=== PATIENT | female | born 1985 | race Asian ===

== ENCOUNTER → 2016-07-11 | Outpatient (CLI) | payer MEDICARE ==
--- NOTE | 2016-07-12 09:23 | ECHOF ---
Referral Reason: MEASUREMENTS -------- HEIGHT: 162.6 cm WEIGHT: 77.1 kg BP: IVSd: 1.0 cm (0.6 - 1.1) LVIDd: 3.5 cm (3.9 - 5.3) LVPWd: 0.9 cm (0.6 - 1.1) IVSs: 1.5 cm LVIDs: 2.5 cm LVPWs: 1.0 cm Ao Diam: 2.9 cm (2.0 - 3.7) AV Cusp: 1.8 cm (1.5 - 2.6) LA Diam: 2.8 cm (2.7 - 3.8) MV EXCURSION: 16.399 mm (> 18.000) MV EF SLOPE: 96 mm/s (70 - 150) EPSS: 1.6 cm MV E Hitesh: 0.71 m/s MV DecT: 122 ms MV A Hitesh: 0.80 m/s MV E/A Ratio: 0.89 RAP: 5.00 mmHg RVSP: 13.19 mmHg FINDINGS -------- Sinus rhythm. Resting tachycardia (HR>100bpm). This was a technically good study. Left ventricular wall thickness is normal. Overall left ventricular systolic function is normal with, an EF between 55 - 60 %. The right ventricle is normal in size and function. The left atrium is normal in size. The right atrium is normal in size. The aortic valve is trileaflet, and appears structurally normal. No aortic stenosis or regurgitation. The mitral valve leaflets are mildly thickened. There is trace mitral regurgitation. Trace tricuspid regurgitation present. The right ventricular systolic pressure, as measured by Doppler, is 13.19mmHg. Pulmonic valve appears structurally normal. The aortic root size is normal. The pericardium is normal. CONCLUSIONS -------- 1. Sinus rhythm. 2. The mitral valve leaflets are mildly thickened. 3. There is trace mitral regurgitation. 4. Trace tricuspid regurgitation present. 5. The right ventricular systolic pressure, as measured by Doppler, is 13.19mmHg. 6. Pulmonic valve appears structurally normal. 7. The aortic root size is normal. 8. The pericardium is normal. 9. Resting tachycardia (HR>100bpm). 10. This was a technically good study. 11. Left ventricular wall thickness is normal. 12. Overall left ventricular systolic function is normal with, an EF between 55 - 60 %. 13. The right ventricle is normal in size and function. 14. The left atrium is normal in size. 15. The right atrium is normal in size. 16. The aortic valve is trileaflet, and appears structurally normal. No aortic stenosis or regurgitation. TOOL GRINDING TECHNICIAN: Nasreen Matamoros RDCS
== END | disposition home or self-care (01) ==
LOC: RADECHMAIN 13:20
PROVIDERS: ATTEND Family Medicine
DX: I08.1 Rheumatic disorders of both mitral and tricuspid valves (principal)
CPT/HCPCS: 93306

== ENCOUNTER → 2018-10-04 | Outpatient (CLI) | payer MEDICARE ==
--- NOTE | 2018-10-04 12:01 | US ---
EXAMINATION TYPE: US pelvis complete transvag DATE OF EXAM: 10/04/2018 COMPARISON: NONE CLINICAL HISTORY: N94.6 Dysmenorrhea. TECHNIQUE: . Transabdominal sonographic images of the pelvis were acquired. Transvaginal sonographi c images were medically necessary to better assess the following anatomy: endometrium Date of LMP: 09/15/2018 EXAM MEASUREMENTS: Uterus: 7.3 x 2.8 x 4.5 cm Endometrial Stripe: 0.2 cm Right Ovary: 1.8 x 1.1 x 0.9 cm Left Ovary: 1.7 x 1.3 x 1.3 cm 1. Uterus: Anteverted fundal fibroid 1.6 x 0.9 x 1.2 cm 2. Endometrium: wnl 3. Right Ovary: wnl 4. Left Ovary: wnl 5. Bilateral Adnexa: wnl 6. Posterior cul-de-sac: wnl Heterogeneous anteverted uterus is seen. No free fluid in pelvic cul-de-sac. Towards end of study the re is a irregular heterogeneous hypoechoic area could reflect subserosal fibroid measuring 1.6 cm teodoro g axis. Endometrium is somewhat thinned for day 18 of menstrual cycle. Both ovaries are identified. No suspicious adnexal lesions are seen on images saved. IMPRESSION: Endometrial stripe is thinned for patient's last known menstrual period. Possible 1.6 cm fundal subserosal fibroid. This could be better evaluated with pelvic MRI if desired.
== END ==
LOC: RADUSWWP 08:00
PROVIDERS: ATTEND Family Medicine
DX: N94.6 Dysmenorrhea, unspecified (principal)
CPT/HCPCS: 76830; 76856

== ENCOUNTER 2018-11-16 23:11 | Emergency (ER) | payer MEDICARE ==
--- NOTE | 2018-11-17 00:37 | ED ---
SOB HPI - General Chief Complaint: Shortness of Breath Stated Complaint: Poss Overdose Time Seen by Provider: 11/16/18 23:26 Source: patient Mode of arrival: ambulatory Limitations: no limitations - History of Present Illness Initial Comments: This patient is 33-year-old woman who presented to be evaluated for possible respiratory depression. The patient stated that she had accidentally combined taking an Ambien with a Xanax. She took that approximately 10 to 10:30 tonight. The patient states that when she looked up the interactions she noted that respiratory depression was on the list. Patient states that it does feel like she has to take a deep breath periodically. She denies chest pain or yennifer dyspnea. No other symptoms. MD Complaint: shortness of breath -: minutes(s) Improves With: nothing Worsens With: nothing Associated Symptoms: denies other symptoms Treatments Prior to Arrival: none - Related Data Home Oxygen Therapy: No Allergies Allergy/AdvReac Type Severity Reaction Status Date / Time quetiapine [From Seroquel] Allergy Rash/Hives Verified 11/16/18 23:20 Review of Systems ROS Statement: Those systems with pertinent positive or pertinent negative responses have been documented in the HPI. ROS Other: All systems not noted in ROS Statement are negative. Constitutional: Denies: fever, chills Respiratory: Reports: as per HPI. Denies: cough, dyspnea, wheezes, hemoptysis Cardiovascular: Denies: chest pain, palpitations, orthopnea, edema, syncope Gastrointestinal: Denies: abdominal pain, nausea, vomiting Musculoskeletal: Denies: back pain Skin: Denies: rash Psychiatric: Denies: anxiety, depression, suicidal thoughts Past Medical History Past Medical History: Diabetes Mellitus History of Any Multi-Drug Resistant Organisms: None Reported Past Surgical History: No Surgical Hx Reported Past Psychological History: Bipolar Smoking Status: Current every day smoker Past Alcohol Use History: None Reported Past Drug Use History: None Reported General Exam Limitations: no limitations General appearance: alert, in no apparent distress Head exam: Present: atraumatic, normocephalic Eye exam: Present: normal appearance. Absent: scleral icterus, conjunctival injection ENT exam: Present: normal oropharynx Neck exam: Present: normal inspection Respiratory exam: Present: normal lung sounds bilaterally. Absent: respiratory distress, wheezes, rales, rhonchi, stridor Cardiovascular Exam: Present: normal rhythm, tachycardia (Heart rate was 112 my exam), normal heart sounds. Absent: systolic murmur, diastolic murmur, rubs, gallop GI/Abdominal exam: Present: soft. Absent: distended, tenderness, guarding, rebound, rigid, mass Extremities exam: Present: normal inspection, normal capillary refill. Absent: pedal edema, calf tenderness Back exam: Present: normal inspection. Absent: CVA tenderness (R), CVA tenderness (L) Neurological exam: Present: alert Psychiatric exam: Present: normal affect. Absent: depressed, suicidal ideation Skin exam: Present: warm, dry, intact, normal color. Absent: rash Course Vital Signs 11/16/18 11/17/18 23:18 00:55 Temperature 97.9 F 98.7 F Pulse Rate 132 H 117 H Respiratory 16 20 Rate Blood Pressure 124/83 123/84 O2 Sat by Pulse 96 96 Oximetry Medical Decision Making - Medical Decision Making Baljit is observed in the emergency departments to ensure no development of respiratory depression. The patient did state that she felt better at the end of the observation period and requested to go home. Discussed the mild tachycardia and fluid bolus recommended but the patient declines that stating she will just take oral fluids when she gets home. Discussed return parameters. Disposition Clinical Impression: Accidental overdose Disposition: HOME SELF-CARE Condition: Good Instructions (If sedation given, give patient instructions): Benzodiazepine Overdose (ED) Is patient prescribed a controlled substance at d/c from ED?: No Referrals: Mukul Deng III, MD [Primary Care Provider] - 1-2 days
[2018-11-17 01:03] VITALS: BP 123/84; PULSE 117; RESP 20; TEMP 98.7
== END 2018-11-17 01:03 | disposition home or self-care (01) ==
LOC: EC 23:11
DX: T42.6X1A Poisoning by other antiepileptic and sedative-hypnotic drugs, accidental (unintentional), initial encounter (principal); T42.4X1A Poisoning by benzodiazepines, accidental (unintentional), initial encounter; R00.0 Tachycardia, unspecified; F17.200 Nicotine dependence, unspecified, uncomplicated; Z88.8 Allergy status to other drugs, medicaments and biological substances; Z53.20 Procedure and treatment not carried out because of patient's decision for unspecified reasons
CPT/HCPCS: 99284

== ENCOUNTER 2019-07-04 01:30 | Emergency (ER) | payer MEDICARE ==
[2019-07-04 01:40] VITALS: TEMP 99
[2019-07-04 02:05] LABS: Appearance,Urine Turbid (Clear); Bilirubin,Urine Negative (Negative); Blood,Urine Large (Negative); Color,Urine Red; Glucose,Urine (UA) 4+ (Negative); Ketones,Urine Negative (Negative); Leukocyte Esterase,Urine Large (Negative); Nitrite,Urine Negative (Negative); PH, Urine 5.5 (5.0-8.0); Protein,Urine 2+ (Negative); RBC,Urine >182 /hpf (0-5); Specific Gravity,Urine 1.016 (1.001-1.035); Urobilinogen,Urine <2.0 mg/dL (<2.0); WBC,Urine >182 /hpf (0-5)
[2019-07-04] MEDS ORDERED: PHENAZOPYRIDINE 200 MG TAB PO STA (02:35)
[2019-07-04] MEDS ORDERED: SULFAMETHOX-TMP 800-160MG 1 EACH TAB PO STA (02:35)
--- NOTE | 2019-07-04 02:40 | ED ---
Female Urogenital HPI - General Chief complaint: Urogenital Stated complaint: Blood in urine Time Seen by Provider: 07/04/19 01:52 Source: patient, family Mode of arrival: ambulatory Limitations: no limitations - History of Present Illness Initial comments: 's patient is 34-year-old woman who presents to be evaluated for suspected urinary tract infection. She states that she started having symptoms a little after noon. She began feeling frequent urge to urinate. She states that she was only urinating small volumes. She then noticed dysuria. Tonight she noted that there was some hematuria as well. Patient denies systemic symptoms, no fever or chills. No chest pain, palpitations, dyspnea, nausea or vomiting. No change in bowel movements. She had not noted any vaginal discharge or change in periods. MD Complaint: dysuria Onset/Timin -: hour(s) Location: suprapubic Radiation: non-radiating Severity: mild Quality: other (Pressure) Consistency: constant Improves with: urination Worsens with: none Last Menstrual Period: 06/27/19 Patient : No Associated Symptoms: dysuria - Related Data Previous Rx's Medication Instructions Recorded Phenazopyridine [Pyridium] 100 mg PO TID #6 tablet 07/04/19 Sulfamethox-Tmp 800-160Mg [Bactrim 1 each PO Q12HR #14 tab 07/04/19 Ds] Allergies Allergy/AdvReac Type Severity Reaction Status Date / Time quetiapine [From Seroquel] Allergy Rash/Hives Verified 07/04/19 01:33 Review of Systems ROS Statement: Those systems with pertinent positive or pertinent negative responses have been documented in the HPI. ROS Other: All systems not noted in ROS Statement are negative. Constitutional: Denies: fever, chills Respiratory: Denies: dyspnea Cardiovascular: Denies: chest pain, palpitations, edema Gastrointestinal: Reports: as per HPI, abdominal pain (Suprapubic discomfort), diarrhea. Denies: vomiting, constipation Genitourinary: Reports: urgency, dysuria, frequency, hematuria. Denies: discharge, abnormal menses Musculoskeletal: Denies: back pain Skin: Denies: rash Past Medical History Past Medical History: Diabetes Mellitus History of Any Multi-Drug Resistant Organisms: None Reported Past Surgical History: No Surgical Hx Reported Past Psychological History: Bipolar Smoking Status: Former smoker Past Alcohol Use History: None Reported Past Drug Use History: None Reported General Exam Limitations: no limitations General appearance: alert, in no apparent distress Head exam: Present: atraumatic, normocephalic Eye exam: Present: normal appearance. Absent: scleral icterus, conjunctival injection Respiratory exam: Present: normal lung sounds bilaterally. Absent: respiratory distress, wheezes, rales, rhonchi, stridor Cardiovascular Exam: Present: regular rate, normal rhythm, normal heart sounds. Absent: systolic murmur, diastolic murmur, rubs, gallop GI/Abdominal exam: Present: soft. Absent: distended, tenderness, guarding, rebound, rigid, mass Back exam: Absent: CVA tenderness (R), CVA tenderness (L) Neurological exam: Present: alert Skin exam: Present: warm, dry, intact, normal color. Absent: rash Course Vital Signs 07/04/19 01:30 Temperature 99 F Pulse Rate 100 Respiratory 20 Rate Blood Pressure 126/94 O2 Sat by Pulse 97 Oximetry Medical Decision Making - Lab Data Lab Results 07/04/19 07/04/19 Range/Units 01:37 01:37 Urine Color Red Urine Appearance Turbid H (Clear) Urine pH 5.5 (5.0-8.0) Ur Specific [place] 1.016 (1.001-1.035) Urine Protein 2+ H (Negative) Urine Glucose (UA) 4+ H (Negative) Urine Ketones Negative (Negative) Urine Blood Large H (Negative) Urine Nitrite Negative (Negative) Urine Bilirubin Negative (Negative) Urine Urobilinogen <2.0 (<2.0) mg/dL Ur Leukocyte Esterase Large H (Negative) Urine RBC >182 H (0-5) /hpf Urine WBC >182 H (0-5) /hpf Urine HCG, Qual Not Detected (Not Detectd) Disposition Clinical Impression: Urinary tract infection Disposition: HOME SELF-CARE Condition: Good Instructions (If sedation given, give patient instructions): Urinary Tract Infection in Women (ED) Prescriptions: Sulfamethox-Tmp 800-160Mg [Bactrim Ds] 1 each PO Q12HR #14 tab Phenazopyridine [Pyridium] 100 mg PO TID #6 tablet Is patient prescribed a controlled substance at d/c from ED?: No Referrals: Mukul Deng III, MD [Primary Care Provider] - 1-2 days
[2019-07-04 03:19] VITALS: BP 122/83; PULSE 110; RESP 19
== END 2019-07-04 03:01 | disposition home or self-care (01) ==
LOC: EC 01:30
DX: N39.0 Urinary tract infection, site not specified (principal); Z87.891 Personal history of nicotine dependence; Z88.8 Allergy status to other drugs, medicaments and biological substances
CPT/HCPCS: 81001; 81025; 87086; 99283

== ENCOUNTER 2019-07-10 12:20 | Inpatient (IN) | payer MEDICARE ==
[2019-07-10] MEDS ORDERED: SODIUM CHLORIDE 0.9% 1,000 ML IV STA (12:45)
[2019-07-10] MEDS ORDERED: KETOROLAC 30 MG/ML 1 ML VIAL IVP STA (12:45)
--- NOTE | 2019-07-10 12:50 | ED ---
Abdominal Pain HPI - General Chief Complaint: Abdominal Pain Stated Complaint: blood in urine/back pain Time Seen by Provider: 07/10/19 12:28 Source: patient Mode of arrival: ambulatory Limitations: no limitations - History of Present Illness Initial Comments: Patient is a 34-year-old female presenting to emergency Department with complaints of hematuria as well as right lower back pain x2 days. Patient was in the ER last week and was diagnosed with a UTI and started on Bactrim. Patient states she believes her symptoms have been increasing since then. She's been having intermittent nausea, suprapubic pain as well as right-sided low back pain. Patient states she went to her PCP today for a follow-up and states she still having lots of hematuria and with her back pain wanted her to be reevaluated. Patient's urine culture came back normal. Patient is on her last day of Bactrim. Patient denies chest pain, shortness of breath, cough. Patient is a type II diabetic and takes metformin and was recently started on a new insulin. Her PCP states that it might be the new insulin causing her symptoms. She has no other complaints at this time. Upon arrival to the ER, patient was tachycardia at 132, rest of vitals are normal. - Related Data Home Medications Medication Instructions Recorded Confirmed ARIPiprazole [Abilify] 15 mg PO DAILY 07/10/19 07/10/19 Cyanocobalamin (Vitamin B-12) 1,000 mcg PO AC-LUNCH 07/10/19 07/10/19 [Vitamin B-12] DULoxetine HCL [Cymbalta] 120 mg PO DAILY 07/10/19 07/10/19 Dapagliflozin Propanediol [Farxiga] 10 mg PO DAILY 07/10/19 07/10/19 Ergocalciferol [Vitamin D2] 50,000 unit PO TH 07/10/19 07/10/19 Famotidine [Pepcid] 10 mg PO BID 07/10/19 07/10/19 Ferrous Sulfate [Feosol] 325 mg PO DAILY 07/10/19 07/10/19 Hyoscyamine Sulfate [Levbid] 0.375 mg PO BID 07/10/19 07/10/19 Introvale 0.15mg-30 Mg 1 tab PO DAILY 07/10/19 07/10/19 LORazepam [Ativan] 0.5 mg PO DAILY PRN 07/10/19 07/10/19 Lactobacillus Rhamnosus GG 1 cap PO HS 07/10/19 07/10/19 [Culturelle] Lisinopril [Zestril] 2.5 mg PO DAILY 07/10/19 07/10/19 Loratadine [Claritin] 10 mg PO DAILY 07/10/19 07/10/19 Melatonin 20 mg PO HS 07/10/19 07/10/19 Sulfamethox-Tmp 800-160Mg [Bactrim 1 tab PO Q12H 07/10/19 07/10/19 Ds] Zolpidem [Ambien] 10 mg PO HS 07/10/19 07/10/19 metFORMIN HCL ER [Glucophage Xr] 1,000 mg PO BID 07/10/19 07/10/19 valACYclovir [Valtrex] 1,000 mg PO DAILY 07/10/19 07/10/19 Allergies Allergy/AdvReac Type Severity Reaction Status Date / Time quetiapine [From Seroquel] Allergy Rash/Hives Verified 07/10/19 16:05 Review of Systems ROS Statement: Those systems with pertinent positive or pertinent negative responses have been documented in the HPI. ROS Other: All systems not noted in ROS Statement are negative. Past Medical History Past Medical History: Diabetes Mellitus Additional Past Medical History / Comment(s): IBS History of Any Multi-Drug Resistant Organisms: None Reported Past Surgical History: No Surgical Hx Reported Past Psychological History: Anxiety, Bipolar Smoking Status: Former smoker Past Alcohol Use History: None Reported Past Drug Use History: None Reported General Exam - General Exam Comments Initial Comments: GENERAL: Well-appearing, well-nourished and in no acute distress. HEAD: Atraumatic, normocephalic. EYES: Pupils equal round and reactive to light, extraocular movements intact, sclera anicteric, conjunctiva are normal. ENT: TMs normal, nares patent, oropharynx clear without exudates. Moist mucous membranes. NECK: Normal range of motion, supple without lymphadenopathy or JVD. LUNGS: Breath sounds clear to auscultation bilaterally and equal. No wheezes rales or rhonchi. HEART: Tachycardia rate and rhythm without murmurs, rubs or gallops. ABDOMEN: Mild suprapubic tenderness, no other abdominal tenderness. Mild right flank tenderness. Soft, normoactive bowel sounds. No guarding, no rebound. No masses appreciated. : Deferred EXTREMITIES: Normal range of motion, no pitting or edema. No clubbing or cyanosis. NEUROLOGICAL: Normal speech, normal gait. PSYCH: Normal mood, normal affect. SKIN: Warm, Dry, normal turgor, no rashes or lesions noted. Limitations: no limitations Course Vital Signs 07/10/19 07/10/19 07/10/19 12:23 14:20 14:24 Temperature 98.1 F 98.4 F Pulse Rate 132 H 84 124 H Respiratory 20 16 16 Rate Blood Pressure 126/86 114/76 114/76 O2 Sat by Pulse 96 95 97 Oximetry 07/10/19 07/10/19 07/10/19 14:30 15:00 15:30 Temperature Pulse Rate 75 84 79 Respiratory 18 16 20 Rate Blood Pressure 114/76 113/76 106/71 O2 Sat by Pulse 94 L 95 94 L Oximetry Medical Decision Making - Medical Decision Making Patient is 34-year-old female presenting with hematuria and right flank pain 2 days. She was tachycardia on arrival, afebrile. Patient has slight leukocytosis on lab work at 13.5, glucose is 325. Patient continues to have a few WBCs as well as bacteria in her urine. 4+ glucose. Urine culture is pending at this time. Patient was given fluids, Toradol, 1 g Rocephin in the ER. Upon recheck of her vitals, patient still appears to be tachycardia at 124. Given her hypoglycemia, UTI, tachycardia, patient will be admitted to obs ervation for continued IV antibiotics and hydration. She is in agreement with this plan and care. Case discussed with Dr. Hendrix. Dr. Nixon was accepting. - Lab Data Result diagrams: 07/10/19 12:44 07/10/19 12:44 Lab Results 07/10/19 07/10/19 07/10/19 Range/Units 12:44 12:44 12:44 WBC 13.5 H (3.8-10.6) k/uL RBC 4.57 (3.80-5.40) m/uL Hgb 14.8 (11.4-16.0) gm/dL Hct 44.9 (34.0-46.0) % MCV 98.4 (80.0-100.0) fL MCH 32.4 (25.0-35.0) pg MCHC 32.9 (31.0-37.0) g/dL RDW 12.5 (11.5-15.5) % Plt Count 401 (150-450) k/uL Neutrophils % 68 % Lymphocytes % 23 % Monocytes % 4 % Eosinophils % 1 % Basophils % 1 % Neutrophils # 9.2 H (1.3-7.7) k/uL Lymphocytes # 3.2 (1.0-4.8) k/uL Monocytes # 0.6 (0-1.0) k/uL Eosinophils # 0.2 (0-0.7) k/uL Basophils # 0.2 (0-0.2) k/uL Sodium 138 (137-145) mmol/L Potassium 4.5 (3.5-5.1) mmol/L Chloride 104 (98-107) mmol/L Carbon Dioxide 18 L (22-30) mmol/L Anion Gap 16 mmol/L BUN 10 (7-17) mg/dL Creatinine 0.64 (0.52-1.04) mg/dL Est GFR (CKD-EPI)AfAm >90 (>60 ml/min/1.73 sqM) Est GFR (CKD-EPI)NonAf >90 (>60 ml/min/1.73 sqM) Glucose 325 H (74-99) mg/dL POC Glucose (mg/dL) (75-99) mg/dL POC Glu Firmware Test Engineer ID Calcium 9.5 (8.4-10.2) mg/dL Total Bilirubin 0.4 (0.2-1.3) mg/dL AST 29 (14-36) U/L ALT 18 (4-34) U/L Alkaline Phosphatase 75 (38-126) U/L Total Protein 7.3 (6.3-8.2) g/dL Albumin 4.3 (3.5-5.0) g/dL Urine Color Light Yellow Urine Appearance Clear (Clear) Urine pH 5.0 (5.0-8.0) Ur Specific [place] 1.024 (1.001-1.035) Urine Protein Negative (Negative) Urine Glucose (UA) 4+ H (Negative) Urine Ketones Trace H (Negative) Urine Blood Small H (Negative) Urine Nitrite Negative (Negative) Urine Bilirubin Negative (Negative) Urine Urobilinogen <2.0 (<2.0) mg/dL Ur Leukocyte Esterase Small H (Negative) Urine RBC 17 H (0-5) /hpf Urine WBC 15 H (0-5) /hpf Ur Squamous Epith Cells <1 (0-4) /hpf Urine Bacteria Rare H (None) /hpf Urine Mucus Rare H (None) /hpf 07/10/19 Range/Units 14:21 WBC (3.8-10.6) k/uL RBC (3.80-5.40) m/uL Hgb (11.4-16.0) gm/dL Hct (34.0-46.0) % MCV (80.0-100.0) fL MCH (25.0-35.0) pg MCHC (31.0-37.0) g/dL RDW (11.5-15.5) % Plt Count (150-450) k/uL Neutrophils % % Lymphocytes % % Monocytes % % Eosinophils % % Basophils % % Neutrophils # (1.3-7.7) k/uL Lymphocytes # (1.0-4.8) k/uL Monocytes # (0-1.0) k/uL Eosinophils # (0-0.7) k/uL Basophils # (0-0.2) k/uL Sodium (137-145) mmol/L Potassium (3.5-5.1) mmol/L Chloride (98-107) mmol/L Carbon Dioxide (22-30) mmol/L Anion Gap mmol/L BUN (7-17) mg/dL Creatinine (0.52-1.04) mg/dL Est GFR (CKD-EPI)AfAm (>60 ml/min/1.73 sqM) Est GFR (CKD-EPI)NonAf (>60 ml/min/1.73 sqM) Glucose (74-99) mg/dL POC Glucose (mg/dL) 227 H (75-99) mg/dL POC Glu Firmware Test Engineer ID Hira Hardin Calcium (8.4-10.2) mg/dL Total Bilirubin (0.2-1.3) mg/dL AST (14-36) U/L ALT (4-34) U/L Alkaline Phosphatase (38-126) U/L Total Protein (6.3-8.2) g/dL Albumin (3.5-5.0) g/dL Urine Color Urine Appearance (Clear) Urine pH (5.0-8.0) Ur Specific [place] (1.001-1.035) Urine Protein (Negative) Urine Glucose (UA) (Negative) Urine Ketones (Negative) Urine Blood (Negative) Urine Nitrite (Negative) Urine Bilirubin (Negative) Urine Urobilinogen (<2.0) mg/dL Ur Leukocyte Esterase (Negative) Urine RBC (0-5) /hpf Urine WBC (0-5) /hpf Ur Squamous Epith Cells (0-4) /hpf Urine Bacteria (None) /hpf Urine Mucus (None) /hpf Disposition Clinical Impression: UTI (urinary tract infection), Dehydration, Hyperglycemia Disposition: ADMITTED IP TO THIS HOSP Condition: Stable Is patient prescribed a controlled substance at d/c from ED?: No Decision Date: 07/10/19 Decision Time: 15:35
[2019-07-10 13:02] LABS: Basophils # (A) 0.2 k/uL (0-0.2); Basophils % (A) 1 %; Eosinophils # (A) 0.2 k/uL (0-0.7); Eosinophils % (A) 1 %; HCT 44.9 % (34.0-46.0); HGB 14.8 gm/dL (11.4-16.0); Lymphocytes # (A) 3.2 k/uL (1.0-4.8); Lymphocytes % (A) 23 %; MCH 32.4 pg (25.0-35.0); MCHC 32.9 g/dL (31.0-37.0); MCV 98.4 fL (80.0-100.0); Mean Platelet Volume 6.8; Monocytes # (A) 0.6 k/uL (0-1.0); Monocytes % (A) 4 %; Neutrophils # (A) 9.2 k/uL (1.3-7.7); Neutrophils % (A) 68 %; Platelet Count 401 k/uL (150-450); RBC 4.57 m/uL (3.80-5.40); RDW 12.5 % (11.5-15.5); WBC 13.5 k/uL (3.8-10.6)
[2019-07-10 13:13] LABS: ALT 18 U/L (4-34); AST 29 U/L (14-36); African American GFR (CKD) >90 (>60 ml/min/1.73 sqM); Albumin 4.3 g/dL (3.5-5.0); Alkaline Phosphatase 75 U/L (38-126); Anion Gap 16 mmol/L; Appearance,Urine Clear (Clear); Bacteria,Urine Rare /hpf; Bilirubin,Urine Negative (Negative); Blood Urea Nitrogen 10 mg/dL (7-17); Blood,Urine Small (Negative); Calcium 9.5 mg/dL (8.4-10.2); Carbon Dioxide 18 mmol/L (22-30); Chloride 104 mmol/L (98-107); Color,Urine Light Yellow; Glucose 325 mg/dL (74-99); Glucose,Urine (UA) 4+ (Negative); Ketones,Urine Trace (Negative); Leukocyte Esterase,Urine Small (Negative); Mucus,Urine Rare /hpf; Nitrite,Urine Negative (Negative); Non-African American GFR(CKD) >90 (>60 ml/min/1.73 sqM); Potassium 4.5 mmol/L (3.5-5.1); Protein,Urine Negative (Negative); RBC,Urine 17 /hpf (0-5); Sodium 138 mmol/L (137-145); Specific Gravity,Urine 1.024 (1.001-1.035); Squamous Epithelial Cell,Urine <1 /hpf (0-4); Total Bilirubin 0.4 mg/dL (0.2-1.3); Total Protein 7.3 g/dL (6.3-8.2); Urobilinogen,Urine <2.0 mg/dL (<2.0); WBC,Urine 15 /hpf (0-5)
[2019-07-10 14:23] LABS: Glucose,Whole Blood 227 mg/dL (75-99)
[2019-07-10] MEDS ORDERED: NALOXONE 0.4 MG/ML 1 ML VIAL IV PRN (15:32)
[2019-07-10] MEDS ORDERED: IBUPROFEN 400 MG TAB PO PRN (15:32)
[2019-07-10] MEDS: SODIUM CHLORIDE 0.9% 1,000 ML IV SCH (16:56)
[2019-07-10] MEDS ORDERED: KETOROLAC 30 MG/ML 1 ML VIAL IVP PRN (17:13)
[2019-07-10] MEDS: INSULIN ASPART (NovoLOG) 100 UNIT/ML VIAL SQ SCH ×2 (17:35→21:22)
[2019-07-10 17:36] LABS: Glucose,Whole Blood 119 mg/dL (75-99)
[2019-07-10] MEDS: HEPARIN SODIUM,PORCINE 5,000 UNIT/ML 1 ML VIAL SQ SCH (21:04)
[2019-07-10] MEDS: metFORMIN 500 MG TAB PO SCH (21:04)
[2019-07-10] MEDS: MELATONIN 5 MG TABLET PO SCH (21:05)
[2019-07-10] MEDS: HYOSCYAMINE SULFATE 0.375 MG TAB.ER.12H PO SCH (21:05)
[2019-07-10] MEDS: ZOLPIDEM 10 MG TAB PO SCH (21:08)
[2019-07-10 21:18] LABS: Glucose,Whole Blood 137 mg/dL (75-99)
[2019-07-10] MEDS: LACTOBACILLUS ACIDOPH & BULGAR 1 EACH PACKET PO SCH (21:22)
[2019-07-10] MEDS: LORazepam 0.5 MG TAB PO PRN (22:26)
[2019-07-10] MEDS ORDERED: ONDANSETRON 4 MG/2 ML VIAL IVP STA (22:45)
--- NOTE | 2019-07-10 23:22 | XR ---
EXAMINATION TYPE: XR abdomen 2V DATE OF EXAM: 07/10/2019 COMPARISON: NONE HISTORY: Right-sided pain TECHNIQUE: 3 views FINDINGS: There is no sign of intestinal obstruction or pneumoperitoneum. Fecal pattern is normal. Shira ng bases are clear. There are no pathologic calcifications over the kidneys. IMPRESSION: Nonacute abdomen.
[2019-07-11] MEDS: SODIUM CHLORIDE 0.9% 1,000 ML IV SCH ×2 (05:59→19:24)
--- NOTE | 2019-07-11 06:49 | P.HPIM ---
History of Present Illness This is a pleasant 54 years old female with past medical history of diabetes mellitus and irritable bowel syndrome, anxiety/bipolar. Presents because of abdominal pain. Patient states that she was diagnosed with UTI about one week ago when she had also blood in urine, and that She was given Bactrim and sent home however she got worse. Yesterday she went to see her PCP Dr. Deng states she still had blood in urine, she was tachycardic and dehydrated. Patient complaining of from right lower back pain radiating to the right flank since Monday about 4 days ago, at 17/10 in severity coming down to 4-5/10 currently I sharp associated with nausea but no vomiting. Rory ago her PCP added Farxigo to metformin 1000 twice a day because her hemoglobin A1c was 7.9. This medication inhibits glucose reabsorption and increasing urinary glucose excretion. Patient is slightly tachycardic 106-124, his flaps looks stable and patient is afebrile. She has mild leukocytosis with 13.5 K. Risks of labs including CBC, BMP and liver enzymes not elevated. Sugar is 119-227. And urinalysis is suspicious of infection. Abdominal x-ray: No acute process In the emergency room patient was started on Rocephin, she got also Toradol and started on normal saline at 75 mL/h Review of Systems CONSTITUTIONAL: No fever, no malaise, no fatigue. HEENT: No recent visual problems or hearing problems. Denied any sore throat. CARDIOVASCULAR: No orthopnea, PND, no palpitations, no syncope. PULMONARY: No shortness of breath, no cough, no hemoptysis. GASTROINTESTINAL: No diarrhea, no nausea, no vomiting, no abdominal pain. Normoactive bowel sounds. NEUROLOGICAL: No headaches, no weakness, no numbness. HEMATOLOGICAL: Denies any bleeding or petechiae. GENITOURINARY: Denies any burning micturition MUSCULOSKELETAL/RHEUMATOLOGICAL: Denies any joint pain, swelling, or any muscle pain. ENDOCRINE: Denies any polyuria or polydipsia. Past Medical History Past Medical History: Diabetes Mellitus Additional Past Medical History / Comment(s): IBS History of Any Multi-Drug Resistant Organisms: None Reported Past Surgical History: No Surgical Hx Reported Past Psychological History: Anxiety, Bipolar Smoking Status: Former smoker Past Alcohol Use History: None Reported Past Drug Use History: None Reported Medications and Allergies Home Medications Medication Instructions Recorded Confirmed Type ARIPiprazole [Abilify] 15 mg PO DAILY 07/10/19 07/10/19 History Cyanocobalamin (Vitamin B-12) 1,000 mcg PO AC-LUNCH 07/10/19 07/10/19 History [Vitamin B-12] DULoxetine HCL [Cymbalta] 120 mg PO DAILY 07/10/19 07/10/19 History Dapagliflozin Propanediol [Farxiga] 10 mg PO DAILY 07/10/19 07/10/19 History Ergocalciferol [Vitamin D2] 50,000 unit PO TH 07/10/19 07/10/19 History Famotidine [Pepcid] 10 mg PO BID 07/10/19 07/10/19 History Ferrous Sulfate [Feosol] 325 mg PO DAILY 07/10/19 07/10/19 History Hyoscyamine Sulfate [Levbid] 0.375 mg PO BID 07/10/19 07/10/19 History Introvale 0.15mg-30 Mg 1 tab PO DAILY 07/10/19 07/10/19 History LORazepam [Ativan] 0.5 mg PO DAILY PRN 07/10/19 07/10/19 History Lactobacillus Rhamnosus GG 1 cap PO HS 07/10/19 07/10/19 History [Culturelle] Lisinopril [Zestril] 2.5 mg PO DAILY 07/10/19 07/10/19 History Loratadine [Claritin] 10 mg PO DAILY 07/10/19 07/10/19 History Melatonin 20 mg PO HS 07/10/19 07/10/19 History Sulfamethox-Tmp 800-160Mg [Bactrim 1 tab PO Q12H 07/10/19 07/10/19 History Ds] Zolpidem [Ambien] 10 mg PO HS 07/10/19 07/10/19 History metFORMIN HCL ER [Glucophage Xr] 1,000 mg PO BID 07/10/19 07/10/19 History valACYclovir [Valtrex] 1,000 mg PO DAILY 07/10/19 07/10/19 History Allergies Allergy/AdvReac Type Severity Reaction Status Date / Time quetiapine [From Seroquel] Allergy Rash/Hives Verified 07/10/19 16:05 Physical Exam Vitals: Vital Signs Temp Pulse Pulse Pulse Resp BP BP 07/11/19 05:25 98.5 F 91 16 119/80 07/10/19 20:19 98.2 F 106 H 18 122/84 07/10/19 17:06 98.2 F 114 H 16 117/83 07/10/19 16:58 98.2 F 82 20 110/66 07/10/19 15:30 79 20 106/71 07/10/19 15:00 84 16 113/76 07/10/19 14:30 75 18 114/76 07/10/19 14:24 98.4 F 124 H 16 114/76 07/10/19 14:20 84 16 114/76 07/10/19 12:23 98.1 F 132 H 20 126/86 Pulse Ox 07/11/19 05:25 95 07/10/19 20:19 96 07/10/19 17:06 94 L 07/10/19 16:58 95 07/10/19 15:30 94 L 07/10/19 15:00 95 07/10/19 14:30 94 L 07/10/19 14:24 97 07/10/19 14:20 95 07/10/19 12:23 96 Intake and Output 07/10/19 07/10/19 07/11/19 14:59 22:59 06:59 Other: Voiding Method Toilet # Voids 2 2 Weight 86.954 kg GENERAL: The patient is alert and oriented x3, not in any acute distress. Well developed, well nourished. HEENT: Pupils are round and equally reacting to light. EOMI. No scleral icterus. No conjunctival pallor. Normocephalic, atraumatic. No pharyngeal erythema. No thyromegaly. CARDIOVASCULAR: S1 and S2 present. No murmurs, rubs, or gallops. PULMONARY: Chest is clear to auscultation, no wheezing or crackles. -ABDOMEN: Soft, suprapubic tenderness, right flank pain and right costovertebral angle tenderness, no rebound tenderness or guarding, nondistended, normoactive bowel sounds. No palpable organomegaly. MUSCULOSKELETAL: No joint swelling or deformity. EXTREMITIES: No cyanosis, clubbing, or pedal edema. NEUROLOGICAL: Gross neurological examination did not reveal any focal deficits. SKIN: No rashes. No petechiae Results CBC & Chem 7: 07/10/19 12:44 07/10/19 12:44 Labs: Abnormal Lab Results - Last 24 Hours (Table) 07/10/19 07/10/19 07/10/19 Range/Units 12:44 12:44 12:44 WBC 13.5 H (3.8-10.6) k/uL Neutrophils # 9.2 H (1.3-7.7) k/uL Carbon Dioxide 18 L (22-30) mmol/L Glucose 325 H (74-99) mg/dL POC Glucose (mg/dL) (75-99) mg/dL Urine Glucose (UA) 4+ H (Negative) Urine Ketones Trace H (Negative) Urine Blood Small H (Negative) Ur Leukocyte Esterase Small H (Negative) Urine RBC 17 H (0-5) /hpf Urine WBC 15 H (0-5) /hpf Urine Bacteria Rare H (None) /hpf Urine Mucus Rare H (None) /hpf 07/10/19 07/10/19 07/10/19 Range/Units 14:21 17:34 21:16 WBC (3.8-10.6) k/uL Neutrophils # (1.3-7.7) k/uL Carbon Dioxide (22-30) mmol/L Glucose (74-99) mg/dL POC Glucose (mg/dL) 227 H 119 H 137 H (75-99) mg/dL Urine Glucose (UA) (Negative) Urine Ketones (Negative) Urine Blood (Negative) Ur Leukocyte Esterase (Negative) Urine RBC (0-5) /hpf Urine WBC (0-5) /hpf Urine Bacteria (None) /hpf Urine Mucus (None) /hpf Microbiology - Last 24 Hours (Table) 07/10/19 12:44 Urine Culture - Preliminary Urine,Voided Thrombosis Risk Factor Assmnt - Choose All That Apply Any of the Below Risk Factors Present?: No Other Risk Factors: No Other congenital or acquired thrombophilia - If yes, enter type in comment: No Thrombosis Risk Factor Assessment Level: Very Low Risk Assessment and Plan Assessment: acute complicated urinary tract infection with Abdominal pain with hematuria Diabetes mellitus Irritable bowel syndrome Anxiety and depression, not an active issue Plan: this is a pleasant 54 years old female who presents with hematuria and abdominal pain. Continue with antibiotics. Recommend to discontinue Farxigo. Continue with metformin and insulin sliding scale Discontinue NSAIDs and in view of her hematuria . Pain management. Continue with IV fluids. Follow-up urine cultures Continue same treatment. Continue with symptomatic treatment. Resume home medication. Monitor lytes and vitals. DVT and GI prophylaxis. Further recommendations of the clinical course of the patient DVT prophylaxis: Subcutaneous heparin GI Prophylaxis: Pepcid Prognosis is guarded
[2019-07-11 07:18] LABS: Glucose,Whole Blood 131 mg/dL (75-99)
[2019-07-11] MEDS: HEPARIN SODIUM,PORCINE 5,000 UNIT/ML 1 ML VIAL SQ SCH ×2 (08:00→21:44)
[2019-07-11] MEDS: FAMOTIDINE 20 MG TAB PO SCH (08:00)
[2019-07-11] MEDS: metFORMIN 500 MG TAB PO SCH ×2 (08:00→21:41)
[2019-07-11] MEDS: LISINOPRIL 2.5 MG TAB PO SCH (08:00)
[2019-07-11] MEDS: LORATADINE 10 MG TAB PO SCH (08:01)
[2019-07-11] MEDS: INSULIN ASPART (NovoLOG) 100 UNIT/ML VIAL SQ SCH ×4 (08:01→21:43)
[2019-07-11] MEDS: DULoxetine HCL 30 MG CAPSULE.DR PO SCH (08:01)
[2019-07-11] MEDS: HYOSCYAMINE SULFATE 0.375 MG TAB.ER.12H PO SCH ×2 (08:01→21:42)
[2019-07-11] MEDS: ARIPiprazole 15 MG TAB PO SCH (08:02)
[2019-07-11 08:45] LABS: Basophils # (A) 0.2 k/uL (0-0.2); Basophils % (A) 2 %; Eosinophils # (A) 0.1 k/uL (0-0.7); Eosinophils % (A) 1 %; HCT 39.9 % (34.0-46.0); Lymphocytes # (A) 3.8 k/uL (1.0-4.8); Lymphocytes % (A) 41 %; MCH 32.1 pg (25.0-35.0); MCHC 32.5 g/dL (31.0-37.0); MCV 98.6 fL (80.0-100.0); Mean Platelet Volume 7.1; Monocytes # (A) 0.6 k/uL (0-1.0); Monocytes % (A) 6 %; Neutrophils # (A) 4.3 k/uL (1.3-7.7); Neutrophils % (A) 47 %; Platelet Count 364 k/uL (150-450); RBC 4.05 m/uL (3.80-5.40); RDW 12.5 % (11.5-15.5); WBC 9.1 k/uL (3.8-10.6)
[2019-07-11 08:56] LABS: ALT 15 U/L (4-34); AST 26 U/L (14-36); African American GFR (CKD) >90 (>60 ml/min/1.73 sqM); Albumin 3.5 g/dL (3.5-5.0); Alkaline Phosphatase 47 U/L (38-126); Anion Gap 9 mmol/L; Blood Urea Nitrogen 11 mg/dL (7-17); Calcium 8.5 mg/dL (8.4-10.2); Carbon Dioxide 24 mmol/L (22-30); Chloride 103 mmol/L (98-107); Glucose 115 mg/dL (74-99); Non-African American GFR(CKD) >90 (>60 ml/min/1.73 sqM); Potassium 4.4 mmol/L (3.5-5.1); Sodium 136 mmol/L (137-145); Total Bilirubin 0.6 mg/dL (0.2-1.3); Total Protein 6.2 g/dL (6.3-8.2)
[2019-07-11 09:02] LABS: HCG,Qualitative Serum Not Detected
[2019-07-11] MEDS: traMADol 50 MG TAB PO PRN ×3 (09:25→23:27)
[2019-07-11 11:38] VITALS: BMI 32.9
[2019-07-11 12:11] LABS: Glucose,Whole Blood 151 mg/dL (75-99)
[2019-07-11] MEDS: CYANOCOBALAMIN 500 MCG TAB PO SCH (12:32)
[2019-07-11 17:14] LABS: Glucose,Whole Blood 149 mg/dL (75-99)
--- NOTE | 2019-07-11 18:06 | US ---
Right Kidney: EXAMINATION TYPE: US renals and bladder DATE OF EXAM: 07/11/2019 COMPARISON: NONE CLINICAL HISTORY: uti with back pain . UTI and back pain x 5 days. Hematuria. HTN. EXAM MEASUREMENTS: Right Kidney: 12.2 x 6.2 x 5.3 cm Left Kidney: 11.5 x 5.8 x 6.0 cm Right Kidney: Measures slightly enlarged. No hydronephrosis, calcifications or masses seen Left Kidney: No hydronephrosis, calcification or masses seen Bladder: Appears anechoic. Bilateral Jets seen: Yes IMPRESSION: No acute processes.
[2019-07-11 20:02] LABS: Glucose,Whole Blood 162 mg/dL (75-99)
[2019-07-11] MEDS: LORazepam 0.5 MG TAB PO PRN (20:15)
[2019-07-11] MEDS: MELATONIN 5 MG TABLET PO SCH (21:41)
[2019-07-11] MEDS: ZOLPIDEM 10 MG TAB PO SCH (21:42)
[2019-07-11] MEDS: LACTOBACILLUS ACIDOPH & BULGAR 1 EACH PACKET PO SCH (23:20)
--- NOTE | 2019-07-11 23:35 | P.CONS ---
History of Present Illness - Reason for Consult Consult date: 07/11/19 UTI Requesting physician: Lexa E Sheet - Chief Complaint Urinary frequency/hematuria x days - History of Present Illness Patient is a 34-year-old female started getting sick about a week ago patient did have predominantly urinary symptoms with urinary burning and frequency patient was evaluated at [facility] ER on July 04 UA and culture were done patient received a dose of antibiotics IM and was discharged home on Bactrim DS however the patient had did have a rather worsening of her symptoms this patient who did have a suprapubic and right flank discomfort more of a dull aching pain about 3-4 out of 10 and no radiation with intermittent nausea and the patient was having hematuria patient subsequently was sent back to the ER by the PCP patient on arrival to the ER was afebrile however she was tachycardic patient white count was elevated 13.5 UA was positive with small Steri-Strips and 50 WBC patient urine culture not showing gram-negative she was started on Rocephin infectious was consulted for further recommendation about antibiotic therapy. Review of Systems Positive point has been mentioned in HPI rest of the systems are negative Past Medical History Past Medical History: Diabetes Mellitus Additional Past Medical History / Comment(s): IBS History of Any Multi-Drug Resistant Organisms: None Reported Past Surgical History: No Surgical Hx Reported Past Psychological History: Anxiety, Bipolar Smoking Status: Former smoker Past Alcohol Use History: None Reported Past Drug Use History: None Reported Medications and Allergies Home Medications Medication Instructions Recorded Confirmed Type ARIPiprazole [Abilify] 15 mg PO DAILY 07/10/19 07/10/19 History Cyanocobalamin (Vitamin B-12) 1,000 mcg PO AC-LUNCH 07/10/19 07/10/19 History [Vitamin B-12] DULoxetine HCL [Cymbalta] 120 mg PO DAILY 07/10/19 07/10/19 History Dapagliflozin Propanediol [Farxiga] 10 mg PO DAILY 07/10/19 07/10/19 History Ergocalciferol [Vitamin D2] 50,000 unit PO TH 07/10/19 07/10/19 History Famotidine [Pepcid] 10 mg PO BID 07/10/19 07/10/19 History Ferrous Sulfate [Feosol] 325 mg PO DAILY 07/10/19 07/10/19 History Hyoscyamine Sulfate [Levbid] 0.375 mg PO BID 07/10/19 07/10/19 History Introvale 0.15mg-30 Mg 1 tab PO DAILY 07/10/19 07/10/19 History LORazepam [Ativan] 0.5 mg PO DAILY PRN 07/10/19 07/10/19 History Lactobacillus Rhamnosus GG 1 cap PO HS 07/10/19 07/10/19 History [Culturelle] Lisinopril [Zestril] 2.5 mg PO DAILY 07/10/19 07/10/19 History Loratadine [Claritin] 10 mg PO DAILY 07/10/19 07/10/19 History Melatonin 20 mg PO HS 07/10/19 07/10/19 History Sulfamethox-Tmp 800-160Mg [Bactrim 1 tab PO Q12H 07/10/19 07/10/19 History Ds] Zolpidem [Ambien] 10 mg PO HS 07/10/19 07/10/19 History metFORMIN HCL ER [Glucophage Xr] 1,000 mg PO BID 07/10/19 07/10/19 History valACYclovir [Valtrex] 1,000 mg PO DAILY 07/10/19 07/10/19 History Allergies Allergy/AdvReac Type Severity Reaction Status Date / Time quetiapine [From Seroquel] Allergy Rash/Hives Verified 07/10/19 16:05 Physical Exam Vitals: Vital Signs Temp Pulse Resp BP Pulse Ox 07/11/19 15:00 98.6 F 108 H 16 124/73 94 L 07/11/19 05:25 98.5 F 91 16 119/80 95 07/10/19 20:19 98.2 F 106 H 18 122/84 96 Intake and Output 07/11/19 07/11/19 07/11/19 06:59 14:59 22:59 Intake Total 650 Balance 650 Intake: Intake, IV Titration 650 Amount Sodium Chloride 0.9% 1, 600 000 ml @ 75 mls/hr IV . [id number] [facility] Rx#:[id number] cefTRIAXone 1 gm In 50 Sodium Chloride 0.9% 50 ml @ 100 mls/hr IVPB Q24HR [facility] Rx#:[id number] Other: Voiding Method Toilet Toilet # Voids 2 Weight 86.954 kg GENERAL DESCRIPTION: Middle-aged female lying in bed, no distress. No tachypnea or accessory muscle of respiration use. HEENT: Shows Pallor , no scleral icterus. Oral mucous membrane is dry. NECK: Trachea central, no thyromegaly. LUNGS: Unlabored breathing. Clear to auscultation anteriorly. No wheeze or crackle. HEART: S1, S2, regular rate and rhythm. ABDOMEN: Soft, no tenderness , guarding or rigidity EXTREMITIES: No edema of feet. SKIN: No rash, no masses palpable. NEUROLOGICAL: The patient is awake, alert, oriented x3, mood and affect normal. Results CBC & Chem 7: 07/11/19 07:09 07/11/19 07:09 Labs: Abnormal Lab Results - Last 24 Hours (Table) 07/10/19 07/11/19 07/11/19 Range/Units 21:16 07:09 07:16 Sodium 136 L (137-145) mmol/L Creatinine 0.46 L (0.52-1.04) mg/dL Glucose 115 H (74-99) mg/dL POC Glucose (mg/dL) 137 H 131 H (75-99) mg/dL Total Protein 6.2 L (6.3-8.2) g/dL 07/11/19 07/11/19 Range/Units 11:59 17:10 Sodium (137-145) mmol/L Creatinine (0.52-1.04) mg/dL Glucose (74-99) mg/dL POC Glucose (mg/dL) 151 H 149 H (75-99) mg/dL Total Protein (6.3-8.2) g/dL Microbiology - Last 24 Hours (Table) 07/10/19 12:44 Urine Culture - Preliminary Urine,Voided Gram Neg Bacilli Assessment and Plan Assessment: patient being admitted to hospital her with urinary burning frequency hematuria this patient did have suprapubic and flank pain with nausea did have elevated white count likely from enteric gram-negative pathogen failing outpatient oral Bactrim DS therapy patient did have ultrasound of the kidney that was negative for hydronephrosis or renal stone (1) Urinary tract infection Current Visit: Yes Status: Acute Code(s): N39.0 - URINARY TRACT INFECTION, SITE NOT SPECIFIED SNOMED Code(s): 04140503 Plan: 1-Rocephin 1 g IV piggyback daily 2-IV fluid We will follow on clinical condition and cultures to further adjust medication if needed Thank you for this consultation we will follow the patient along with you
[2019-07-12 07:03] LABS: Glucose,Whole Blood 121 mg/dL (75-99)
[2019-07-12] MEDS: FAMOTIDINE 20 MG TAB PO SCH (08:02)
[2019-07-12] MEDS: HYOSCYAMINE SULFATE 0.375 MG TAB.ER.12H PO SCH ×2 (08:02→21:42)
[2019-07-12] MEDS: HEPARIN SODIUM,PORCINE 5,000 UNIT/ML 1 ML VIAL SQ SCH ×2 (08:03→21:39)
[2019-07-12] MEDS: DULoxetine HCL 30 MG CAPSULE.DR PO SCH (08:03)
[2019-07-12] MEDS: LISINOPRIL 2.5 MG TAB PO SCH (08:03)
[2019-07-12] MEDS: ARIPiprazole 15 MG TAB PO SCH (08:03)
[2019-07-12] MEDS: metFORMIN 500 MG TAB PO SCH ×2 (08:04→21:39)
[2019-07-12] MEDS: INSULIN ASPART (NovoLOG) 100 UNIT/ML VIAL SQ SCH ×4 (08:04→21:40)
[2019-07-12] MEDS: LORATADINE 10 MG TAB PO SCH (08:04)
[2019-07-12] MEDS: SODIUM CHLORIDE 0.9% 1,000 ML IV SCH ×2 (08:06→22:20)
[2019-07-12] MEDS: traMADol 50 MG TAB PO PRN ×3 (08:55→23:33)
[2019-07-12 11:43] LABS: Glucose,Whole Blood 130 mg/dL (75-99)
[2019-07-12] MEDS: CYANOCOBALAMIN 500 MCG TAB PO SCH (11:56)
--- NOTE | 2019-07-12 13:56 | PN ---
PROGRESS NOTE DATE OF SERVICE: 07/12/2019 REASON FOR FOLLOWUP: A gram-negative urinary tract infection. INTERVAL HISTORY: The patient is currently afebrile. Patient is breathing comfortably. Denies having chest pain, shortness of breath or cough. No nausea or vomiting. Urinary symptoms have improved and no diarrhea. PHYSICAL EXAMINATION: Blood pressure 107/74 with a pulse of 88, temperature 97.9. She is 95% on room air. General description is a middle-aged female lying in bed in no distress. RESPIRATORY SYSTEM: Unlabored breathing, clear to auscultation anteriorly. HEART: S1, S2. Regular rate and rhythm. ABDOMEN: Soft, no tenderness. LABS: Renal ultrasound did not show any structural abnormality. Urine culture with gram- negative, sensitivities pending. DIAGNOSTIC IMPRESSION AND PLAN: Patient admitted to the hospital with gram-negative urinary tract infection failing outpatient oral Bactrim DS therapy. Patient responded to Rocephin, that will be continued. Discharge antibiotic will depend on the culture report. Continue with supportive care. MMODL / IJN: [id number] /
[2019-07-12 17:33] LABS: Glucose,Whole Blood 189 mg/dL (75-99)
[2019-07-12 20:33] LABS: Glucose,Whole Blood 166 mg/dL (75-99)
[2019-07-12] MEDS: ZOLPIDEM 10 MG TAB PO SCH (21:38)
[2019-07-12] MEDS: MELATONIN 5 MG TABLET PO SCH (21:39)
[2019-07-12] MEDS: LACTOBACILLUS ACIDOPH & BULGAR 1 EACH PACKET PO SCH (21:40)
[2019-07-12] MEDS: LORazepam 0.5 MG TAB PO PRN (22:19)
--- NOTE | 2019-07-12 23:02 | P.PN ---
Subjective This is a pleasant 54 years old female with past medical history of diabetes mellitus and irritable bowel syndrome, anxiety/bipolar. Presents because of abdominal pain. Patient states that she was diagnosed with UTI about one week ago when she had also blood in urine, and that She was given Bactrim and sent home however she got worse. Yesterday she went to see her PCP Dr. Deng states she still had blood in urine, she was tachycardic and dehydrated. Patient complaining of from right lower back pain radiating to the right flank since Monday about 4 days ago, at 17/10 in severity coming down to 4-5/10 currently I sharp associated with nausea but no vomiting. Rory ago her PCP added Farxigo to metformin 1000 twice a day because her hem oglobin A1c was 7.9. This medication inhibits glucose reabsorption and increasing urinary glucose excretion. Patient is slightly tachycardic 106-124, his flaps looks stable and patient is afebrile. She has mild leukocytosis with 13.5 K. Risks of labs including CBC, BMP and liver enzymes not elevated. Sugar is 119-227. And urinalysis is suspicious of infection. Abdominal x-ray: No acute process In the emergency room patient was started on Rocephin, she got also Toradol and started on normal saline at 75 mL/h 07/12/19 her symptoms are improving gradually ,pending urine culture . no fever Objective - Vital Signs Vital signs: Vital Signs Temp 98.0 F 07/12/19 19:44 Pulse 95 07/12/19 19:44 Resp 18 07/12/19 19:44 BP 118/78 07/12/19 19:44 Pulse Ox 97 07/12/19 15:00 Intake & Output 07/12/19 07/12/19 07/13/19 06:59 18:59 06:59 Intake Total 900 400 Balance 900 400 Intake: Oral 900 400 Other: Voiding Method Toilet Toilet Toilet # Voids 1 3 1 # Bowel Movements 0 - Exam GENERAL: The patient is alert and oriented x3, not in any acute distress. Well developed, well nourished. HEENT: Pupils are round and equally reacting to light. EOMI. No scleral icterus. No conjunctival pallor. Normocephalic, atraumatic. No pharyngeal erythema. No thyromegaly. CARDIOVASCULAR: S1 and S2 present. No murmurs, rubs, or gallops. PULMONARY: Chest is clear to auscultation, no wheezing or crackles. -ABDOMEN: Soft, suprapubic tenderness, no right costovertebral angle tenderness, no rebound tenderness or guarding, nondistended, normoactive bowel sounds. No palpable organomegaly. -MUSCULOSKELETAL: No joint swelling or deformity. lower right muscular tenderness EXTREMITIES: No cyanosis, clubbing, or pedal edema. NEUROLOGICAL: Gross neurological examination did not reveal any focal deficits. SKIN: No rashes. No petechiae - Labs CBC & Chem 7: 07/11/19 07:09 07/11/19 07:09 Labs: Abnormal Lab Results - Last 24 Hours (Table) 07/12/19 07/12/19 07/12/19 Range/Units 07:01 11:41 17:22 POC Glucose (mg/dL) 121 H 130 H 189 H (75-99) mg/dL 07/12/19 Range/Units 20:27 POC Glucose (mg/dL) 166 H (75-99) mg/dL Microbiology - Last 24 Hours (Table) 07/10/19 12:44 Urine Culture - Final Urine,Voided Escherichia coli Assessment and Plan Assessment: acute complicated urinary tract infection with Abdominal pain with hematuria Diabetes mellitus Irritable bowel syndrome Anxiety and depression, not an active issue Plan: this is a pleasant 54 years old female who presents with hematuria and abdominal pain. Continue with antibiotics. Recommend to discontinue Farxigo. Continue with metformin and insulin sliding scale Discontinue NSAIDs and in view of her hematuria . Pain management. Continue with IV fluids. Follow-up urine cultures Continue same treatment. Continue with symptomatic treatment. Resume home medication. Monitor lytes and vitals. DVT and GI prophylaxis. Further recommendations of the clinical course of the patient DVT prophylaxis: Subcutaneous heparin GI Prophylaxis: Pepcid Prognosis is guarded
[2019-07-13 05:50] VITALS: BP 114/78; PULSE 91; RESP 20; TEMP 98.2
[2019-07-13 07:12] LABS: Glucose,Whole Blood 126 mg/dL (75-99)
[2019-07-13] MEDS: INSULIN ASPART (NovoLOG) 100 UNIT/ML VIAL SQ SCH (07:16)
[2019-07-13] MEDS: ARIPiprazole 15 MG TAB PO SCH (08:40)
[2019-07-13] MEDS: DULoxetine HCL 30 MG CAPSULE.DR PO SCH (08:40)
[2019-07-13] MEDS: FAMOTIDINE 20 MG TAB PO SCH (08:40)
[2019-07-13] MEDS: HEPARIN SODIUM,PORCINE 5,000 UNIT/ML 1 ML VIAL SQ SCH (08:41)
[2019-07-13] MEDS: LORATADINE 10 MG TAB PO SCH (08:41)
[2019-07-13] MEDS: metFORMIN 500 MG TAB PO SCH (08:41)
[2019-07-13] MEDS: LISINOPRIL 2.5 MG TAB PO SCH (08:41)
[2019-07-13] MEDS: HYOSCYAMINE SULFATE 0.375 MG TAB.ER.12H PO SCH (08:41)
--- NOTE | 2019-07-13 09:12 | P.DS ---
Providers Date of admission: 07/10/19 16:26 Attending physician: Aaron Nixon Consults: 07/11/19 16:31 Consult Physician Routine Consulting Provider: Eliseo Quezada Consult Reason/Comments: uti Do you want consulting provider notified?: Yes Primary care physician: Mukul Deng Hospital Course: Diagnoses: acute complicated urinary tract infection with Abdominal pain with hematuria , secondary to E. coli, sensitive to antibiotic Right lower back musculoskeletal pain Diabetes mellitus Irritable bowel syndrome Anxiety and depression, not an active issue Hospital course: This is a pleasant 54 years old female with past medical history of diabetes mellitus and irritable bowel syndrome, anxiety/bipolar. Presents because of abdominal pain. Patient states that she was diagnosed with UTI about one week ago when she had also blood in urine, and that She was given Bactrim and sent home however she got worse. Yesterday she went to see her PCP Dr. Deng states she still had blood in urine, she was tachycardic and dehydrated. Patient presents with back pain and suprapubic tenderness, her back pain is actually in the muscular area rather than in the CVA tenderness, renal ultrasound is neg ative. Urine culture is positive for E. coli which is sensitive to cephalosporin. Patient will be discharged on Ceftin for 7-10 days with a recommendation that she follow up as an outpatient and she agrees Patient felt better and her symptoms improved, no other symptoms. Patient was evaluated and cleared for discharge by infectious disease specialist on oral antibiotics Problems and management plan were discussed with the patient and he verbalized understanding and acceptance Patient was found stable and can be discharged home however he needs follow-up as an outpatient. Patient was instructed to follow up with PCP within one week and patient agrees. She agrees with the appointments with Dr. Deng office Gen: patient is a AAOx3, no distress CVS: S1-S2, RRR, no murmur Lungs: B/L CTA, no wheezing Abdomen: soft, no distention, no tenderness, positive bowel sounds Extremity: no leg edema or induration Time spent more than 35 minutes Patient Condition at Discharge: Stable Plan - Discharge Summary New Discharge Prescriptions: New Cefuroxime Axetil [Ceftin] 500 mg PO BID 10 Days #20 tab Continue Sulfamethox-Tmp 800-160Mg [Bactrim DS 800-160 mg] 1 tab PO Q12H Dapagliflozin Propanediol [Farxiga] 10 mg PO DAILY ARIPiprazole [Abilify] 15 mg PO DAILY Melatonin 20 mg PO HS Lactobacillus Rhamnosus GG [Culturelle] 1 cap PO HS LORazepam [Ativan] 0.5 mg PO DAILY PRN PRN Reason: Anxiety Cyanocobalamin (Vitamin B-12) [Vitamin B-12] 1,000 mcg PO AC-LUNCH valACYclovir [Valtrex] 1,000 mg PO DAILY Zolpidem [Ambien] 10 mg PO HS Ergocalciferol [Vitamin D2 (DRISDOL)] 50,000 unit PO TH metFORMIN HCL ER [Glucophage Xr] 1,000 mg PO BID Lisinopril [Zestril] 2.5 mg PO DAILY Ferrous Sulfate [Iron (65 MG Elemental)] 325 mg PO DAILY DULoxetine HCL [Cymbalta] 120 mg PO DAILY Hyoscyamine Sulfate [Levbid] 0.375 mg PO BID Famotidine [Pepcid] 10 mg PO BID Loratadine [Claritin] 10 mg PO DAILY Introvale 0.15mg-30 Mg 1 tab PO DAILY Discharge Medication List ARIPiprazole [Abilify] 15 mg PO DAILY 07/10/19 [History] Cyanocobalamin (Vitamin B-12) [Vitamin B-12] 1,000 mcg PO AC-LUNCH 07/10/19 [History] DULoxetine HCL [Cymbalta] 120 mg PO DAILY 07/10/19 [History] Dapagliflozin Propanediol [Farxiga] 10 mg PO DAILY 07/10/19 [History] Ergocalciferol [Vitamin D2 (DRISDOL)] 50,000 unit PO TH 07/10/19 [History] Famotidine [Pepcid] 10 mg PO BID 07/10/19 [History] Ferrous Sulfate [Iron (65 MG Elemental)] 325 mg PO DAILY 07/10/19 [History] Hyoscyamine Sulfate [Levbid] 0.375 mg PO BID 07/10/19 [History] Introvale 0.15mg-30 Mg 1 tab PO DAILY 07/10/19 [History] LORazepam [Ativan] 0.5 mg PO DAILY PRN 07/10/19 [History] Lactobacillus Rhamnosus GG [Culturelle] 1 cap PO HS 07/10/19 [History] Lisinopril [Zestril] 2.5 mg PO DAILY 07/10/19 [History] Loratadine [Claritin] 10 mg PO DAILY 07/10/19 [History] Melatonin 20 mg PO HS 07/10/19 [History] Sulfamethox-Tmp 800-160Mg [Bactrim DS 800-160 mg] 1 tab PO Q12H 07/10/19 [History] Zolpidem [Ambien] 10 mg PO HS 07/10/19 [History] metFORMIN HCL ER [Glucophage Xr] 1,000 mg PO BID 07/10/19 [History] valACYclovir [Valtrex] 1,000 mg PO DAILY 07/10/19 [History] Cefuroxime Axetil [Ceftin] 500 mg PO BID 10 Days #20 tab 07/13/19 [Rx] Follow up Appointment(s)/Referral(s): Mukul Deng III, MD [Primary Care Provider] - 07/19/19 3:00 pm ([facility] Please check your urine analysis with your doctor) Patient Instructions/Handouts: Urinary Tract Infection in Women (DC) Activity/Diet/Wound Care/Special Instructions: Diabetic diet Activity as tolerated.
[2019-07-13] MEDS: SODIUM CHLORIDE 0.9% 1,000 ML IV SCH (10:16)
[2019-07-13 11:46] LABS: Glucose,Whole Blood 184 mg/dL (75-99)
== END 2019-07-13 13:03 | disposition home or self-care (01) | DRG 690 ==
LOC: EC 12:20 → 6NMEDSUR 16:26 → OBSVTOIN 16:26
PROVIDERS: ADMIT Internal Medicine; ATTEND Internal Medicine
DX: N39.0 Urinary tract infection, site not specified (principal); B96.20 Unspecified Escherichia coli [E. coli] as the cause of diseases classified elsewhere; E11.649 Type 2 diabetes mellitus with hypoglycemia without coma; R31.9 Hematuria, unspecified; E86.0 Dehydration; F31.9 Bipolar disorder, unspecified; F41.9 Anxiety disorder, unspecified; K58.9 Irritable bowel syndrome, unspecified; Z79.84 Long term (current) use of oral hypoglycemic drugs; Z79.899 Other long term (current) drug therapy; Z87.891 Personal history of nicotine dependence; Z88.8 Allergy status to other drugs, medicaments and biological substances
CPT/HCPCS: 36415; 74019; 76770; 80053; 81001; 84145; 84703; 85025; 87077; 87086; 87186; 96361; 96365; 96375; 99284

== ENCOUNTER → 2020-06-17 | Outpatient (CLI) | payer MEDICARE | END | disposition home or self-care (01) | LOC: LABWHC1 10:11 | PROVIDERS: ATTEND Family Medicine | DX: R05 Cough (principal) | CPT/HCPCS: U0003; C9803 ==

== ENCOUNTER → 2020-08-20 | Outpatient (CLI) | payer MEDICARE ==
--- NOTE | 2020-08-21 08:03 | US ---
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 goiter GLAND SIZE: Right Lobe: 5.5 x 1.3 x 1.7 cm Overall Parenchyma: homogenous Left Lobe: 5.0 x 1.2 x 1.7 cm Overall Parenchyma: homogeneous Isthmus Thickness: 0.3 cm NODULES RIGHT: # of nodules measured on right: 0 LEFT: # of nodules measured on left: 1 1. 1.5 X 0.9 x 1.2 cm solid, isoechoic nodule, which is wider than tall, with ill-defined margins, without echogenic foci. Thyroid nodule is new from comparison ISTHMUS: # of nodules measured in the isthmus: 0 Bilateral neck scanned, no evidence of lymphadenopathy. *cystic area posterior to right inferior thyroid = 1.1 x 0.5 x 0.7cm IMPRESSION: Mildly suspicious nodule left lobe thyroid, follow-up exam in one year is recommended. 2017 ACR TI-RADS LEVEL: TR-RADS 3 - Mildly Suspicious: Follow if > 1.5 cm, FNA if > 2.5 cm *Highest TI-RADS level nodule reported
== END ==
LOC: RADUSWWP 16:20
PROVIDERS: ATTEND Internal Medicine Endocrinology, Diabetes & Metabolism
DX: E04.1 Nontoxic single thyroid nodule (principal)
CPT/HCPCS: 76536

== ENCOUNTER → 2020-09-21 | Outpatient (CLI) | payer MEDICARE ==
[2020-09-22 01:49] LABS: Hemoglobin A1C 7.1 % (4.0-6.0)
[2020-09-22 05:53] LABS: Microalbumin Creatinine Ratio <30 mg/g Creat (0-30); Urine Creatinine 23.3 mg/dL
[2020-09-22 06:51] LABS: African American GFR (CKD) 136.9 (60.0-200.0); Albumin 4.8 g/dL (3.80-4.90); Albumin/Globulin Ratio 1.92 (1.60-3.17); Anion Gap 14.9 mmol/L (4.00-12.00); BUN/Creat Ratio 23.33 Ratio (12.00-20.00); Carbon Dioxide 22.1 mmol/L (21.6-31.8); Globulin 2.5 g/dL (1.6-3.3); Non-African American GFR(CKD) 118.1 (60.0-200.0); Potassium 4.3 mmol/L (3.5-5.5); Total Bilirubin 0.3 mg/dL (0.2-1.2); Total Protein 7.3 g/dL (6.2-8.2)
== END | disposition home or self-care (01) ==
LOC: LABWHC1 14:37
PROVIDERS: ATTEND Internal Medicine Endocrinology, Diabetes & Metabolism
DX: E11.65 Type 2 diabetes mellitus with hyperglycemia (principal)
CPT/HCPCS: 36415; 80053; 82043; 82570; 83036; 84443

== ENCOUNTER → 2020-09-23 | Outpatient (CLI) | payer MEDICARE ==
[2020-09-23 20:41] LABS: Chol/HDL Ratio 3.49
== END | disposition home or self-care (01) ==
LOC: LABWHC1 09:42
PROVIDERS: ATTEND Internal Medicine Endocrinology, Diabetes & Metabolism
DX: E11.65 Type 2 diabetes mellitus with hyperglycemia (principal)
CPT/HCPCS: 36415; 80061; 83721

== ENCOUNTER → 2021-03-25 | Outpatient (CLI) | payer MEDICARE ==
[2021-03-26 03:07] LABS: African American GFR (CKD) 141.5 (60.0-200.0); Albumin 4.3 g/dL (3.8-4.9); Albumin/Globulin Ratio 1.64 (1.60-3.17); BUN/Creat Ratio 21.03 Ratio (12.00-20.00); Blood Urea Nitrogen 11.4 mg/dL (9.0-27.0); Calcium 9.2 mg/dL (8.7-10.3); Chol/HDL Ratio 2.56 Ratio; Globulin 2.6 g/dL (1.6-3.3); HDL Cholesterol 50.4 mg/dL (40.00-60.00); LDL Cholesterol,Calculated 7.2 mg/dL (0.0-131.0); Non-African American GFR(CKD) 122.1 (60.0-200.0); Potassium 4.4 mmol/L (3.5-5.5); Total Bilirubin 0.3 mg/dL (0.30-1.20); VLDL Calculation 71.4 mg/dL (5.00-40.00)
[2021-03-27 10:59] LABS: Urine Creatinine 33.6 mg/dL (28.0-217.0)
== END | disposition home or self-care (01) ==
LOC: LABWHC1 11:12
PROVIDERS: ATTEND Internal Medicine Endocrinology, Diabetes & Metabolism
DX: E11.65 Type 2 diabetes mellitus with hyperglycemia (principal); E04.2 Nontoxic multinodular goiter
CPT/HCPCS: 36415; 80053; 80061; 82043; 82570; 83036; 84443; 86376

== ENCOUNTER → 2022-11-09 | Outpatient (CLI) | payer MEDICARE, OTHER ==
--- NOTE | 2022-11-09 10:17 | US ---
EXAMINATION TYPE: US thyroid st tissue head/neck DATE OF EXAM: 11/09/2022 COMPARISON: US 08/20/20 11/09/2022 CLINICAL INDICATION: Female, 37 years old with history of E04.1 NONTOXIC SINGLE THYROID NODULE; Nodul e, hx FNA. GLAND SIZE: Right Lobe: 5.3 x 2.4 x 1.4 cm Overall Parenchyma: heterogenous Left Lobe: 5.2 x 1.7 x 1.3 cm Overall Parenchyma: heterogenous Isthmus Thickness: 0.18 cm NODULES RIGHT: # of nodules measured on right: 1 1. 0.7 X 0.9 x 0.5 cm, upper mid, Prior size: Does not correlate. TIRADS Score: 4 TIRADS Category 4: Moderately Suspicious Composition: Solid or almost completely solid (2 points). Echogenicity: Hypoechoic (2 points). Shape: Wider than tall (0 points). Margin: Smooth (0 points). Echogenic foci: None or large comet-tail artifacts (0 points) Recommendation: If >1.5cm: FNA; If >1cm: Follow up at 1,2, 3,5 years LEFT: # of nodules measured on left: 2 1. 1.7 X 1.3 x 1.0 cm, lower lateral, Prior size: 1.5 x 0.9 x 1.2 cm TIRADS Score: 3 TIRADS Category 3: Mildly Suspicious Composition: Solid or almost completely solid (2 points). Echogenicity: Hyperechoic or isoechoic (1 point). Shape: Wider than tall (0 points). Margin: Smooth (0 points). Echogenic foci: None or large comet-tail artifacts (0 points) Recommendation: If >2.5cm: FNA; If >1.5cm: Follow up at 1,3,5 years 2. 0.7 X 0.7 x 0.5 cm, upper lateral, Prior size: Does not correlate TIRADS Score: 4 TIRADS Category 4: Moderately Suspicious Composition: Solid or almost completely solid (2 points). Echogenicity: Hypoechoic (2 points). Shape: Wider than tall (0 points). Margin: Smooth (0 points). Echogenic foci: None or large comet-tail artifacts (0 points) Recommendation: If >1.5cm: FNA; If >1cm: Follow up at 1,2, 3,5 years ISTHMUS: # of nodules measured in the isthmus: 0 Bilateral neck scanned, no evidence of lymphadenopathy. Anechoic area seen posterior and inferior to the right thyroid gland: 1.2 x 0.9 x 0.5 cm. This are a was seen on prior study. IMPRESSION: 1. Bilateral thyroid nodules which meet criteria for follow-up in one year. 2. Cystic area posterior to the right thyroid gland could represent exophytic thyroid cyst versus ot her etiologies stable back to at least 08/20/2020
--- NOTE | 2022-11-11 16:41 | NM ---
EXAMINATION TYPE: NM thyroid image w uptake DATE OF EXAM: 11/10/2022 COMPARISON: Correlation ultrasound 11/09/2022 CLINICAL INDICATION: Female, 37 years old with history of E04.1 NONTOXIC SINGLE THYROID NODULE; TECHNIQUE: Thyroid iodine uptake is calculated and images performed after the oral administration of 294 uCi 1-123 Capsule. FINDINGS: There is normal distribution of activity throughout the gland. There is no discrete increased uptake at the lower pole of the left thyroid lobe at the site of the dominant solid nodule seen on ultrasou nd. The 4 hour iodine uptake is calculated at 15.1% (normal range 8-14%). The 24-hour iodine uptake is calculated at 36.3% (normal range 15-35%). IMPRESSION: 1. The patient is borderline to mildly hyperthyroid with iodine uptake percentages as above. 2. No discrete hot nodule is identified
== END | disposition home or self-care (01) ==
LOC: RADUSWWP 08:20
PROVIDERS: ATTEND Family Medicine
DX: E04.2 Nontoxic multinodular goiter (principal); E05.10 Thyrotoxicosis with toxic single thyroid nodule without thyrotoxic crisis or storm
CPT/HCPCS: 76536; 78014; A9516

== ENCOUNTER → 2023-01-23 | Outpatient (CLI) | payer MEDICARE, OTHER ==
[2023-01-23 15:51] LABS: Thyroid Peroxidase Antibodies <9.0 U/mL (0.0-33.0)
[2023-01-23 15:52] LABS: ALT 27 U/L (8-44); AST 18 U/L (13-35); Albumin 4.7 d/dL (3.8-4.9); Albumin/Globulin Ratio 1.74 Ratio (1.60-3.17); Alkaline Phosphatase 72 U/L (41-126); BUN/Creat Ratio 19.17 Ratio (12.00-20.00); Basophils # (A) 0.08 X 10*3/uL (0.00-0.10); Basophils % (A) 0.7 %; Blood Urea Nitrogen 11.5 mg/dL (9.0-27.0); Calcium 9.6 mg/dL (8.7-10.3); Carbon Dioxide 22.1 mmol/L (21.6-31.8); Chloride 100 mmol/L (96-109); Eosinophils # (A) 0.32 X 10*3/uL (0.04-0.35); Eosinophils % (A) 2.8 %; Globulin 2.7 d/dL (1.6-3.3); Glucose 195 mg/dL (70-110); HCT 45.1 % (37.2-46.3); HGB 15.8 d/dL (12.0-15.0); Lymphocytes # (A) 3.92 X 10*3/uL (0.90-5.00); Lymphocytes % (A) 33.9 %; MCH 32.6 pg (27.0-32.0); Mean Platelet Volume 8.6 FL (9.5-12.2); Monocytes # (A) 0.85 X 10*3/uL (0.20-1.00); Monocytes % (A) 7.3 %; NRBC Per 100 WBC 0 X 10*3/uL (0.00-0.01); Neutrophils # (A) 6.35 X 10*3/uL (1.80-7.70); Neutrophils % (A) 54.9 %; Platelet Count 475 X 10*3/uL (140-440); Potassium 4.5 mmol/L (3.5-5.5); RBC 4.85 X 10*6/uL (4.10-5.20); RDW 12.5 % (11.5-14.5); Sodium 137 mmol/L (135-145); T4, Free (Free Thyroxine) 1.32 ng/dL (0.80-1.80); Total Bilirubin 0.4 mg/dL (0.3-1.2); Total Protein 7.4 d/dL (6.2-8.2); WBC 11.57 X 10*3/uL (4.50-10.00)
== END | disposition home or self-care (01) ==
LOC: LABWHC1 08:14
PROVIDERS: ATTEND Family Medicine
DX: E11.9 Type 2 diabetes mellitus without complications (principal)
CPT/HCPCS: 36415; 80053; 83036; 84439; 84443; 84481; 85025; 86376; 86800